=== PATIENT | female | born 1985 | race Hispanic/Latino ===

== ENCOUNTER 2017-08-03 16:16 | Emergency (ER) | payer MEDICAID ==
[2017-08-03 16:38] VITALS: BP 144/79
== END 2017-08-04 06:56 | disposition left against medical advice (07) ==
LOC: ED 16:16
DX: R21 Rash and other nonspecific skin eruption (principal); Z53.21 Procedure and treatment not carried out due to patient leaving prior to being seen by health care provider

== ENCOUNTER 2019-10-22 17:03 | Emergency (ER) | payer MEDICAID ==
[2019-10-22 17:10] VITALS: BP 156/102
--- NOTE | 2019-10-22 18:05 | Emergency Department Report ---
ED ENT HPI - General Chief complaint: Dental/Oral Stated complaint: TOOTH ABCESS PAIN Time Seen by Provider: 10/22/19 17:46 Source: patient Mode of arrival: Ambulatory Limitations: No Limitations - History of Present Illness MD complaint: tooth pain -: Gradual Location: tooth # Severity: mild, moderate Quality: aching, dull Consistency: constant Improves with: none Worsens with: none Context- Dental: history of dental caries, poor dental care Associated Symptoms: toothache - Related Data Home Medications Medication Instructions Recorded Confirmed Last Taken ALPRAZolam [Xanax TAB] 0.5 mg PO BID 03/14/14 03/14/14 Unknown Oxycodone HCl [Roxicodone] 30 mg PO TID 03/14/14 03/14/14 Unknown Previous Rx's Medication Instructions Recorded Last Taken Type HYDROcodone/APAP 5-325 [[place] 1 each PO Q6HR PRN #20 tablet 03/14/14 Unknown Rx 5/325] Amoxicillin/Potassium Clav 1 each PO BID #20 tablet 10/22/19 Unknown Rx [Augmentin 875-125 Tablet] Chlorhexidine Mouthwash [Peridex] 15 ml MM BID #1 bottle 10/22/19 Unknown Rx Ketorolac [Toradol] 10 mg PO Q6H PRN #15 tablet 10/22/19 Unknown Rx Lidocaine Viscous 2% 5 ml MM Q3H PRN #120 udc 10/22/19 Unknown Rx Allergies Allergy/AdvReac Type Severity Reaction Status Date / Time No Known Allergies Allergy Verified 08/03/17 16:35 ED Dental HPI - General Chief complaint: Dental/Oral Stated complaint: TOOTH ABCESS PAIN Time Seen by Provider: 10/22/19 17:46 Source: patient Mode of arrival: Ambulatory Limitations: No Limitations - Related Data Home Medications Medication Instructions Recorded Confirmed Last Taken ALPRAZolam [Xanax TAB] 0.5 mg PO BID 03/14/14 03/14/14 Unknown Oxycodone HCl [Roxicodone] 30 mg PO TID 03/14/14 03/14/14 Unknown Previous Rx's Medication Instructions Recorded Last Taken Type HYDROcodone/APAP 5-325 [[place] 1 each PO Q6HR PRN #20 tablet 03/14/14 Unknown Rx 5/325] Amoxicillin/Potassium Clav 1 each PO BID #20 tablet 10/22/19 Unknown Rx [Augmentin 875-125 Tablet] Chlorhexidine Mouthwash [Peridex] 15 ml MM BID #1 bottle 10/22/19 Unknown Rx Ketorolac [Toradol] 10 mg PO Q6H PRN #15 tablet 10/22/19 Unknown Rx Lidocaine Viscous 2% 5 ml MM Q3H PRN #120 udc 10/22/19 Unknown Rx Allergies Allergy/AdvReac Type Severity Reaction Status Date / Time No Known Allergies Allergy Verified 08/03/17 16:35 ED Review of Systems ROS: Stated complaint: TOOTH ABCESS PAIN Other details as noted in HPI Comment: All other systems reviewed and negative ED Past Medical Hx - Past Medical History Additional medical history: HERNIATED DISC - Surgical History Additional Surgical History: right wrist with metal plate. - Social History Smoking Status: Never Smoker - Medications Home Medications: Home Medications Medication Instructions Recorded Confirmed Last Taken Type ALPRAZolam [Xanax TAB] 0.5 mg PO BID 03/14/14 03/14/14 Unknown History HYDROcodone/APAP 5-325 [[place] 1 each PO Q6HR PRN #20 tablet 03/14/14 Unknown Rx 5/325] Oxycodone HCl [Roxicodone] 30 mg PO TID 03/14/14 03/14/14 Unknown History Amoxicillin/Potassium Clav 1 each PO BID #20 tablet 10/22/19 Unknown Rx [Augmentin 875-125 Tablet] Chlorhexidine Mouthwash [Peridex] 15 ml MM BID #1 bottle 10/22/19 Unknown Rx Ketorolac [Toradol] 10 mg PO Q6H PRN #15 tablet 10/22/19 Unknown Rx Lidocaine Viscous 2% 5 ml MM Q3H PRN #120 udc 10/22/19 Unknown Rx ED Physical Exam - General Limitations: No Limitations General appearance: alert, in no apparent distress - Head Head exam: Present: atraumatic, normocephalic - Eye Eye exam: Present: normal appearance, PERRL, EOMI Pupils: Present: normal accommodation - ENT ENT exam: Present: mucous membranes moist, other (Several dental caries with erosion. Pain to tooth #32 with some adjacent gingival erythema and swelling early abscess formation present no bleeding. Tongue and uvula are midline airway patent) - Neck Neck exam: Present: normal inspection - Respiratory Respiratory exam: Present: normal lung sounds bilaterally. Absent: respiratory distress - Cardiovascular Cardiovascular Exam: Present: regular rate, normal rhythm. Absent: systolic murmur, diastolic murmur, rubs, gallop - GI/Abdominal GI/Abdominal exam: Present: soft, normal bowel sounds - Extremities Exam Extremities exam: Present: normal inspection - Back Exam Back exam: Present: normal inspection - Neurological Exam Neurological exam: Present: alert, oriented X3 - Psychiatric Psychiatric exam: Present: normal affect, normal mood - Skin Skin exam: Present: warm, dry, intact, normal color. Absent: rash ED Course Vital Signs 10/22/19 17:08 Temperature 98.3 F Pulse Rate 87 Respiratory 18 Rate Blood Pressure 156/102 O2 Sat by Pulse 98 Oximetry Critical care attestation.: If time is entered above; I have spent that time in minutes in the direct care o f this critically ill patient, excluding procedure time. ED Disposition Clinical Impression: Dental abscess Disposition: DC- TO HOME OR SELFCARE Is pt being admited?: No Does the pt Need Aspirin: No Condition: Stable Instructions: Dental Abscess (ED) Prescriptions: Amoxicillin/Potassium Clav [Augmentin 875-125 Tablet] 1 each PO BID #20 tablet Lidocaine Viscous 2% 5 ml MM Q3H PRN #120 udc PRN Reason: Pain, Moderate (4-6) Chlorhexidine Mouthwash [Peridex] 15 ml MM BID #1 bottle Ketorolac [Toradol] 10 mg PO Q6H PRN #15 tablet PRN Reason: Pain Referrals: PRIMARY CARE,MD [Primary Care Provider] - 3-5 Days [facility] [Outside] - 3-5 Days
== END 2019-10-22 18:15 | disposition home or self-care (01) ==
LOC: ED 17:03
DX: K04.7 Periapical abscess without sinus (principal); Z79.899 Other long term (current) drug therapy
CPT/HCPCS: 99281

== ENCOUNTER 2020-09-03 19:33 | Emergency (ER) | payer OTHER ==
[2020-09-03 19:51] VITALS: BP 169/110
--- NOTE | 2020-09-03 20:31 | Emergency Department Report ---
ED Lower Extremity HPI - General Chief Complaint: Extremity Injury, Lower Stated Complaint: RIGHT KNEE PAIN Time Seen by Provider: 09/03/20 19:52 Source: patient Mode of arrival: Ambulatory Limitations: No Limitations - History of Present Illness Initial Comments: pt is a 34-year-old female presents emergency room complaints of right knee pain that began 4 days ago. She states that she was dancing and singing and when she went to get off a small stage she felt a popping sensation in her right knee. She denies ever injuring this knee in the past. She is ambulatory with some discomfort. She denies any leg swelling. She denies any numbness or weakness. No past medical history. No allergies to medications. - Related Data Home Medications Medication Instructions Recorded Confirmed Last Taken ALPRAZolam [Xanax TAB] 0.5 mg PO BID 03/14/14 03/14/14 Unknown Oxycodone HCl [Roxicodone] 30 mg PO TID 03/14/14 03/14/14 Unknown Previous Rx's Medication Instructions Recorded Last Taken Type HYDROcodone/APAP 5-325 [[place] 1 each PO Q6HR PRN #20 tablet 03/14/14 Unknown Rx 5/325] Amoxicillin/Potassium Clav 1 each PO BID #20 tablet 10/22/19 Unknown Rx [Augmentin 875-125 Tablet] Chlorhexidine Mouthwash [Peridex] 15 ml MM BID #1 bottle 10/22/19 Unknown Rx Ketorolac [Toradol] 10 mg PO Q6H PRN #15 tablet 10/22/19 Unknown Rx Lidocaine Viscous 2% 5 ml MM Q3H PRN #120 udc 10/22/19 Unknown Rx Naproxen [Naprosyn] 500 mg PO BID #14 tablet 04/07/20 Unknown Rx Naproxen [EC-Naprosyn] 500 mg PO BID PRN #20 tablet.dr 09/03/20 Unknown Rx methOCARBAMOL [Robaxin TAB] 500 mg PO BID PRN #20 tab 09/03/20 Unknown Rx Allergies Allergy/AdvReac Type Severity Reaction Status Date / Time No Known Allergies Allergy Verified 08/03/17 16:35 ED Review of Systems ROS: Stated complaint: RIGHT KNEE PAIN Other details as noted in HPI Comment: All other systems reviewed and negative ED Past Medical Hx - Past Medical History Previous Medical History?: No Hx Kidney Stones: Yes Additional medical history: HERNIATED DISC,. Chronic Back pain - Surgical History Past Surgical History?: Yes Additional Surgical History: right wrist with metal plate. kidney stones - Social History Smoking Status: Never Smoker Substance Use Type: Alcohol - Medications Home Medications: Home Medications Medication Instructions Recorded Confirmed Last Taken Type ALPRAZolam [Xanax TAB] 0.5 mg PO BID 03/14/14 03/14/14 Unknown History HYDROcodone/APAP 5-325 [[place] 1 each PO Q6HR PRN #20 tablet 03/14/14 Unknown Rx 5/325] Oxycodone HCl [Roxicodone] 30 mg PO TID 03/14/14 03/14/14 Unknown History Amoxicillin/Potassium Clav 1 each PO BID #20 tablet 10/22/19 Unknown Rx [Augmentin 875-125 Tablet] Chlorhexidine Mouthwash [Peridex] 15 ml MM BID #1 bottle 10/22/19 Unknown Rx Ketorolac [Toradol] 10 mg PO Q6H PRN #15 tablet 10/22/19 Unknown Rx Lidocaine Viscous 2% 5 ml MM Q3H PRN #120 udc 10/22/19 Unknown Rx Naproxen [Naprosyn] 500 mg PO BID #14 tablet 04/07/20 Unknown Rx Naproxen [EC-Naprosyn] 500 mg PO BID PRN #20 tablet.dr 09/03/20 Unknown Rx methOCARBAMOL [Robaxin TAB] 500 mg PO BID PRN #20 tab 09/03/20 Unknown Rx ED Physical Exam - General Limitations: No Limitations General appearance: alert, in no apparent distress - Head Head exam: Present: atraumatic, normocephalic - Eye Eye exam: Present: normal appearance - ENT ENT exam: Present: mucous membranes moist - Respiratory Respiratory exam: Absent: respiratory distress, accessory muscle use - Extremities Exam Extremities exam: Present: other (ttp to the medial and lateral right knee, FROM of the RLE, no calf ttp, no leg edema, no deformity, pain with internal rotation, neurovascularly intact) - Neurological Exam Neurological exam: Present: alert, oriented X3 - Psychiatric Psychiatric exam: Present: normal affect, normal mood - Skin Skin exam: Present: warm, dry, intact ED Course Vital Signs 09/03/20 19:40 Temperature 98.8 F Pulse Rate 93 H Respiratory 20 Rate Blood Pressure 169/110 O2 Sat by Pulse 97 Oximetry ED Lower Extremity MDM - Radiology Data Radiology results: report reviewed Ordering Physician: SUMMER BERNAL Date of Service: 09/03/20 Procedure(s): XR knee 3V RT Accession Number(s): [id number] cc: SUMMER BERNAL Fluoro Time In Minutes: XR knee 3V RT INDICATION: felt a pop while dancing. COMPARISON: No relevant prior imaging study available. FINDINGS: No acute skeletal abnormality. No soft tissue swelling. There appears to be a small suprapatellar joint effusion. IMPRESSION: 1. No acute skeletal abnormality. Probable small suprapatellar effusion. Signer Name: Nahid Poe MD Signed: 09/03/2020 8:29 PM Workstation Name: [id number] Transcribed By: DANIELE Dictated By: Nahid Poe MD Electronically Authenticated By: Nahid Poe MD Signed Date/Time: 09/03/202028 DD/ 27 TD/TT: - Medical Decision Making pt is a 34-year-old female presents emergency room complaints of right knee pain that began 4 days ago. She states that she was dancing and singing and when she went to get off a small stage she felt a popping sensation in her right knee. She denies ever injuring this knee in the past. She is ambulatory with some discomfort. She denies any leg swelling. She denies any numbness or weakness. No past medical history. No allergies to medications. vss. on exam: ttp to the medial and lateral right knee, FROM of the RLE, no calf ttp, no leg edema, no deformity, pain with internal rotation, neurovascularly intact. XR right knee: 1. No acute skeletal abnormality. Probable small suprapatellar effusion. Likely related to knee sprain. Patient placed in knee immobilizer by nurse remainder of. Patient states that she already has crutches at home and would like to use her own crutches. Patient be referred to orthopedic doctor. Patient given prescription for naproxen and Robaxin. Advised patient Please take medication as prescribed as needed. Do not drive or operate machinery while taking muscle relaxer Robaxin. May use ice for 15 minutes at a time, rest, elevation of the leg. Follow-up with orthopedic doctor. Return to emergency room for new worsening symptoms. Critical care attestation.: If time is entered above; I have spent that time in minutes in the direct care of this critically ill patient, excluding procedure time. ED Disposition Clinical Impression: Suprapatellar effusion of knee Knee sprain Qualifiers: Encounter type: initial encounter Involved ligament of knee: unspecified ligament Laterality: right Qualified Code(s): S83.91XA - Sprain of unspecified site of right knee, initial encounter Disposition: TO HOME OR SELFCARE Is pt being admited?: No Does the pt Need Aspirin: No Condition: Stable Instructions: RICE Therapy for Routine Care of Injuries, [id number], Knee Sprain, Adult, [id number] Additional Instructions: Please take medication as prescribed as needed. Do not drive or operate machinery while taking muscle relaxer Robaxin. May use ice for 15 minutes at a time, rest, elevation of the leg. Follow-up with orthopedic doctor. Return to emergency room for new worsening symptoms. Prescriptions: Naproxen [EC-Naprosyn] 500 mg PO BID PRN #20 tablet. PRN Reason: pain methOCARBAMOL [Robaxin TAB] 500 mg PO BID PRN #20 tab PRN Reason: pain Referrals: ANICETO GORDILLO MD [Staff Physician] - 2-[address] [facility] [Provider Group] - 2-3 Days Time of Disposition: 20:54 Print Language: FRENCH
--- NOTE | 2020-09-03 20:34 | XRay Report ---
XR knee 3V RT INDICATION: felt a pop while dancing. COMPARISON: No relevant prior imaging study available. FINDINGS: No acute skeletal abnormality. No soft tissue swelling. There appears to be a small suprapatellar joint effusion. IMPRESSION: 1. No acute skeletal abnormality. Probable small suprapatellar effusion. Signer Name: Nahid Poe MD Signed: 09/03/2020 8:29 PM Workstation Name: [id number]
== END 2020-09-03 21:36 | disposition home or self-care (01) ==
LOC: ED 19:33
DX: S83.91XA Sprain of unspecified site of right knee, initial encounter (principal); M25.461 Effusion, right knee; Z87.442 Personal history of urinary calculi; Z98.890 Other specified postprocedural states; Z79.899 Other long term (current) drug therapy; X58.XXXA Exposure to other specified factors, initial encounter; Y93.89 Activity, other specified; Y92.89 Other specified places as the place of occurrence of the external cause; Y99.8 Other external cause status